=== PATIENT | female | born 1990 | race African-American/Black ===

== ENCOUNTER 2019-09-20 03:23 | Emergency (ER) | payer MEDICAID ==
[~2019-09-20] VITALS: Ht 162.6 cm; Wt 74.0 kg
[2019-09-20 03:27] VITALS: BP 111/60
== END 2019-09-20 09:23 | disposition left against medical advice (07) ==
LOC: ER 03:23
DX: Z53.21 Procedure and treatment not carried out due to patient leaving prior to being seen by health care provider (principal)

== ENCOUNTER 2022-12-24 12:30 | Emergency (ER) | payer MEDICAID ==
[~2022-12-24] VITALS: Ht 162.6 cm; Wt 84.4 kg
[2022-12-24] MEDS ORDERED: KETOROLAC 60MG/2ML VIAL IM STA (15:40)
[2022-12-24] MEDS ORDERED: NAPR-681 PO (15:47)
[2022-12-24] MEDS ORDERED: TRAM50TA3 MT (15:47)
[2022-12-24 15:57] VITALS: BP 120/82
== END 2022-12-24 16:32 | disposition home or self-care (01) ==
LOC: ER 15:25
DX: S80.01XA Contusion of right knee, initial encounter (principal); W18.30XA Fall on same level, unspecified, initial encounter; Y93.89 Activity, other specified; Y92.89 Other specified places as the place of occurrence of the external cause; Y99.8 Other external cause status
CPT/HCPCS: 73560; 96372; 99283; J1885; Z7610